=== PATIENT | female | born 1965 | race Caucasian/White ===

== ENCOUNTER 2016-10-17 05:36 | Emergency (ER) | payer MEDICARE, OTHER ==
[~2016-10-17] VITALS: Ht 157.5 cm; Wt 50.0 kg
[~2016-10-17 05:36] MED LIST: ADVA100A INH; ALBUAER3 INH; CLON1 PO; CYMB60CA PO; HYDR200T3 PO; IPRA0.02 NEB; LISD70 PO; MONT10TA4 PO; NEBUKIT XX; NEBULIZER/ADULT1 KIT; NEBULIZER1 MI1; NEXI20CA PO; PRED1TAB PO; SPIRCAP INH; TRIA40P IA
[2016-10-17] MEDS ORDERED: SODIUM CHLORIDE 0.9% FLUSH 5 ML FLUSH IVF PRN (05:45)
[2016-10-17 05:52] VITALS: BP 114/76; PULSE 86; RESP 16; TEMP 98.2; O2SAT 96
[2016-10-17 06:01] LABS: BASOPHIL # 0.1 TH/MM3 (0-0.2); BASOPHIL % 0.9 % (0.0-2.0); EOSINOPHIL # 0.2 TH/MM3 (0-0.4); HEMATOCRIT 38.7 % (35.0-46.0); HEMO FLAGS DIFF FINAL; LYMPH % 17.5 % (9.0-44.0); LYMPHOCYTE # 1.6 TH/MM3 (1.0-4.8); MEAN CELL VOLUME 85.9 FL (80.0-100.0); MEAN CORPUSCULAR HEMOGLOBIN 29.8 PG (27.0-34.0); MEAN CORPUSCULAR HGB CONC 34.7 % (32.0-36.0); MONO % 3.8 % (0.0-8.0); NEUT % 75.8 % (16.0-70.0); PLATELET COUNT 307 TH/MM3 (150-450); RED CELL DISTRIBUTION WIDTH 13.3 % (11.6-17.2); WHITE BLOOD COUNT 9.2 TH/MM3 (4.0-11.0)
--- NOTE | 2016-10-17 06:13 | RADRPT ---
EXAM DATE/TIME: 10/17/2016 05:59 [place] COMPARISON: CHEST SINGLE AP, January 17, 2016, 14:08. INDICATIONS : Chest pain MEDICAL HISTORY : Hypercholesterolemia. Gastroesophageal reflux disease. Chronic obstructive SURGICAL HISTORY : None. ENCOUNTER: Initial ACUITY: 1 day PAIN SCORE: 5/10 LOCATION: Bilateral chest FINDINGS: A single view of the chest demonstrates the lungs to be symmetrically aerated without evidence of mas s, infiltrate or effusion. The lungs are hyperaerated. The cardiomediastinal contours are unremarkabl e. Osseous structures are intact. No significant change. CONCLUSION: No acute disease. No significant change has occurred. Macario Poe MD on October 17, 2016 at 6:11 Board Certified Radiologist. This report was verified electronically.
[2016-10-17 06:17] LABS: APTT (PATIENT) 25.7 SEC (24.3-30.1); INTERNATIONAL NORMALIZED RATIO 0.9 RATIO; PROTHROMBIN TIME - PATIENT 9.9 SEC (9.8-11.6)
[2016-10-17 06:30] LABS: ANION GAP 9 MEQ/L (5-15); BICARBONATE 25.6 MEQ/L (21.0-32.0); BLOOD UREA NITROGEN 12 MG/DL (7-18); CHLORIDE 107 MEQ/L (98-107); GLOMERULAR FILTRATION RATE 58 ML/MIN (>89); MAGNESIUM 2.4 MG/DL (1.5-2.5); POTASSIUM 4.2 MEQ/L (3.5-5.1); SODIUM (NA) 142 MEQ/L (136-145)
[2016-10-17 06:35] LABS: CREATINE KINASE 63 U/L (26-192)
--- NOTE | 2016-10-17 07:07 | PD ---
HPI Chief Complaint: Chest Pain Time Seen by Provider: 05:44 Travel History International Travel<30 days: No Contact w/Intl Traveler<30days: No Traveled to known affect area: No History of Present Illness HPI 50-year-old female arrives to the ER complaining of chest pressure starting at about 5 AM when she woke up. She called EMS. It was severe initially. She received nitroglycerin en route and a baby aspirin. In the ER she states her pain resolved. Radiation to the bilateral extremities reported. She believes it's similar prior episodes of costochondritis. No fever or cough. She has a history of COPD and asthma. She also has a history of rheumatoid arthritis as well as ADHD, bipolar depression and anxiety. PFSH Past Medical History Hx Anticoagulant Therapy: No ADHD: Yes Arthritis: Yes (OSTEO/rheumatoid per pt) Asthma: Yes Autoimmune Disease: No Blood Disorders: No Bipolar Disorder: Yes Anxiety: Yes Depression: Yes Heart Rhythm Problems: No Cancer: No Cardiovascular Problems: No High Cholesterol: Yes Chemotherapy: No Chest Pain: No Congestive Heart Failure: No COPD: Yes Cerebrovascular Accident: No Diabetes: No Diminished Hearing: No Endocrine: No Gastrointestinal Disorders: Yes (IBS) GERD: Yes Genitourinary: No Hiatal Hernia: No Insomnia: Yes Kidney Stones: No Musculoskeletal: No Neurologic: Yes (DDD) Psychiatric: Yes (adult adhd/bipolar/depression/anxiety/) Reproductive: Yes Respiratory: Yes (ASTHMA) Immunizations Current: Yes Migraines: No Radiation Therapy: No Renal Failure: No Seizures: No Sickle Cell Disease: No Sleep Apnea: No Thyroid Disease: No Ulcer: No Tetanus Vaccination: > 5 Years Influenza Vaccination: No PNEUMOCCOCAL Vaccine (Year): 1 ?: Not Menopausal: Yes : 0 Past Surgical History Abdominal Surgery: No AICD: No Arteriovenous Shunt: No Cardiac Surgery: No Ear Surgery: No Endocrine Surgery: No Eye Surgery: No Genitourinary Surgery: Yes Hysterectomy: No Insulin Pump: No Joint Replacement: No Neurologic Surgery: No Oral Surgery: Yes (WISDOM TEETH EXTRACTIONS, ROOT CANALS) Thoracic Surgery: Yes (CHEST TUBE X3 FOR SPONTANEOUS PNEUMOTHORAX(S)) Other Surgery: Yes (BREAST IMPLANTS) Social History Alcohol Use: No Tobacco Use: No Substance Use: No Allergies-Medications (Allergen,Severity, Reaction): Coded Allergies: Cultivated Oat Pollen (Verified Allergy, Severe, Wheezing, 01/17/16) Doxycycline (Verified Allergy, Severe, Nausea/Vomiting, 01/17/16) Egg Yolk (Verified Allergy, Severe, HIVES, 01/17/16) Hives - dosn't remember where was it Molds and Smuts (Verified Allergy, Severe, Wheezing, 01/17/16) Reported Meds & Prescriptions Reported Meds & Active Scripts Active Advair Diskus Inh (Fluticasone-Salmeterol Inh) 100-50 Mcg/Blist Aer 1 Puff INH BID Rinse mouth after use. Nebulizer Compressor/Dual (Miscellaneous Medication) Kit 1 Units XX Reported Spiriva Handihaler (Tiotropium Inh) 18 Mcg Cap 18 Mcg INH DAILY 1 capsule = 18 mcg Nebulizer 1 Mis Mis 1 Ea .ROUTE DIRECTED Nebulizer/Adult Mask (N/A) 1 Kit Kit 1 Kit .ROUTE DIRECTED Montelukast (Montelukast Sodium) 10 Mg Tab 10 Mg PO HS Hydroxychloroquine (Hydroxychloroquine Sulfate) 200 Mg Tab 200 Mg PO BID Takw with food Ipratropium Neb (Ipratropium Cameron) 0.5 Mg/2.5 Ml Amp 0.5 Mg NEB QID PRN Proair Hfa 8.5 GM Inh (Albuterol Sulfate) 90 Mcg/Act Aer 2 Puff INH Q4HR PRN 108 mcg/actuation Prednisone 1 Mg Tab 10 Mg PO BID Nexium (Esomeprazole Magnesium) Esomeprazole Magnesium 20 mg Cap 20 Mg PO DAILY Cymbalta (Duloxetine HCl) 60 Mg Cap 60 Mg PO DAILY Vyvanse 70 Mg Cap (Lisdexamfetamine Dimesylate) 70 Mg Cap 70 Mg PO DAILY Klonopin (Clonazepam) 1 Mg Tab 1 Mg PO HS Review of Systems Except as stated in HPI: all other systems reviewed are Neg Physical Exam Narrative GENERAL: 50-year-old female well-nourished well-developed mildly anxious SKIN: Warm and dry. HEAD: Atraumatic. Normocephalic. EYES: Pupils equal and round. No scleral icterus. No injection or drainage. ENT: No nasal bleeding or discharge. Mucous membranes pink and moist. NECK: Trachea midline. No JVD. CARDIOVASCULAR: Regular rate and rhythm. No murmur appreciated. RESPIRATORY: No accessory muscle use. Clear to auscultation. Breath sounds equal bilaterally. GASTROINTESTINAL: Abdomen soft, non-tender, nondistended. Hepatic and splenic margins not palpable. MUSCULOSKELETAL: No obvious deformities. No clubbing. No cyanosis. No edema. NEUROLOGICAL: Awake and alert. No obvious cranial nerve deficits. Motor grossly within normal limits. Normal speech. PSYCHIATRIC: Appropriate mood and affect; insight and judgment normal. Data Data Last Documented VS Vital Signs Date Time Temp Pulse Resp B/P Pulse Ox O2 Delivery O2 Flow Rate FiO2 10/17/16 05:55 Room Air 10/17/16 05:52 98.2 86 16 114/76 96 Orders Electrocardiogram (10/17/16 05:44) Basic Metabolic Panel (Bmp) (10/17/16 05:44) Ckmb (Isoenzyme) Profile (10/17/16 05:44) Complete Blood Count With Diff (10/17/16 05:44) Magnesium (Mg) (10/17/16 05:44) Prothrombin Time / Inr (Pt) (10/17/16 05:44) Act Partial Throm Time (Ptt) (10/17/16 05:44) Troponin I (10/17/16 05:44) Chest, Single Ap (10/17/16 05:44) Ecg Monitoring (10/17/16 05:44) Bilateral Bp Monitoring (10/17/16 05:44) Iv Access Insert/Monitor (10/17/16 05:44) Oximetry (10/17/16 05:44) Oxygen Administration (10/17/16 05:44) Sodium Chloride 0.9% Flush (Ns Flush) (10/17/16 05:45) Labs Laboratory Tests Test 10/17/16 05:50 White Blood Count 9.2 TH/MM3 Red Blood Count 4.50 MIL/MM3 Hemoglobin 13.4 GM/DL Hematocrit 38.7 % Mean Corpuscular Volume 85.9 FL Mean Corpuscular Hemoglobin 29.8 PG Mean Corpuscular Hemoglobin 34.7 % Concent Red Cell Distribution Width 13.3 % Platelet Count 307 TH/MM3 Mean Platelet Volume 6.1 FL Neutrophils (%) (Auto) 75.8 % Lymphocytes (%) (Auto) 17.5 % Monocytes (%) (Auto) 3.8 % Eosinophils (%) (Auto) 2.0 % Basophils (%) (Auto) 0.9 % Neutrophils # (Auto) 7.0 TH/MM3 Lymphocytes # (Auto) 1.6 TH/MM3 Monocytes # (Auto) 0.3 TH/MM3 Eosinophils # (Auto) 0.2 TH/MM3 Basophils # (Auto) 0.1 TH/MM3 CBC Comment DIFF FINAL Differential Comment Prothrombin Time 9.9 SEC Prothromb Time International 0.9 RATIO Ratio Activated Partial 25.7 SEC Thromboplast Time Sodium Level 142 MEQ/L Potassium Level 4.2 MEQ/L Chloride Level 107 MEQ/L Carbon Dioxide Level 25.6 MEQ/L Anion Gap 9 MEQ/L Blood Urea Nitrogen 12 MG/DL Creatinine 1.00 MG/DL Estimat Glomerular Filtration 58 ML/MIN Rate Random Glucose 103 MG/DL Calcium Level 8.6 MG/DL Magnesium Level 2.4 MG/DL Total Creatine Kinase 63 U/L Troponin I LESS THAN 0.02 NG/ML MDM Medical Decision Making Medical Screen Exam Complete: Yes Emergency Medical Condition: Yes Medical Record Reviewed: Yes Differential Diagnosis NSTEMI, unstable angina, coronary vasospasm, PE, PTX, aortic dissection, pericarditis, myocarditis, endocarditis, PNA, esophageal disease, aneurysm, musculoskeletal etiologies, anxiety, cocaine/sympathomimetic abuse Narrative Course EKG reveals a sinus rhythm at 92 and normal axis and DC interval 118 no evidence of acute ischemia Last 24 hours Impressions Chest X-Ray 10/17/16 0544 Signed Impressions: Service Date/Time: Monday, October 17, 2016 05:59 - CONCLUSION: No acute disease. No significant change has occurred. Macario Poe MD CBC & BMP Diagram 10/17/16 05:50 Troponin less than 0.02 INR 0.9 Chest pain center protocol considered most reasonable next step for this patient. She elects to go home. She is aware that she might be experiencing myocardial infarction and that if she doesn't stay for complete evaluation she may come back too late. She may therefore suffer global hypokinesis/ hypoperfusion with resultant CHF and a very poor quality of life. Intubation prolonged ICU admission surgery pain and suffering were described. The patient is aware of the risks she seemed to leaving. The patient demonstrates mental competence for independent decision making. Diagnosis Primary Impression: Left against medical advice Referrals: Primary Care Physician Additional Instructions: You have a choice when it comes to health care, and we are glad that you chose [facility]. Hopefully, we have met your expectations on today's visit. You are welcome to return to [facility] at any time, as we are committed to meeting the health care needs of our community. Med/Other Pt SpecificInfo: No Change to Meds Disposition: 07 AGAINST MEDICAL ADVICE Condition: Randolph Tejeda MD Oct 17, 2016 07:07
--- NOTE | 2016-10-17 08:07 | EKG ---
Date Performed: 10/17/2016 Time Performed: 05:46:04 PTAGE: 50 years EKG: Sinus rhythm WITH SHORT [place] INTERVAL BORDERLINE ECG INTERPRETATION BASED ON A DEFAULT AGE OF 38 YEARS NO SIGNIFICA NT CHANGE FROM PRIOR ELECTROCARDIOGRAM. PREVIOUS TRACING : 01/17/2016 13.54 DOCTOR: Kirk Borden Interpretating Date/Time 10/17/2016 08:06:50
[2016-11-05] MEDS ORDERED: ADVA500A INH (08:14)
[2017-02-04] MEDS ORDERED: ESOM1CAP16 PO (13:45)
[2017-03-01] MEDS ORDERED: IPRA0.02 NEB (12:54)
== END 2016-10-17 07:42 | disposition left against medical advice (07) ==
LOC: NEPC 05:36
DX: R07.89 Other chest pain (principal); R94.31 Abnormal electrocardiogram [ECG] [EKG]; J44.9 Chronic obstructive pulmonary disease, unspecified
CPT/HCPCS: 71010; 80048; 82550; 83735; 84484; 85025; 85610; 85730; 93005

== ENCOUNTER → 2017-05-22 | Outpatient (CLI) | payer MEDICARE, OTHER ==
[~2017-05-22] MED LIST changes: +ADVA500A INH; +ESOM1CAP16 PO; -NEXI20CA PO
[2017-05-22 16:12] LABS: AUTOMATED NEUTROPHIL # 8.1 TH/MM3 (1.8-7.7); BASOPHIL % 0.4 % (0.0-2.0); EOSINOPHIL # 0.1 TH/MM3 (0-0.4); EOSINOPHIL % 0.6 % (0.0-4.0); HEMATOCRIT 41.4 % (35.0-46.0); HEMO FLAGS DIFF FINAL; LYMPH % 23.3 % (9.0-44.0); LYMPHOCYTE # 2.7 TH/MM3 (1.0-4.8); MEAN CELL VOLUME 90.5 FL (80.0-100.0); MEAN CORPUSCULAR HEMOGLOBIN 29.8 PG (27.0-34.0); MONO % 5.1 % (0.0-8.0); NEUT % 70.6 % (16.0-70.0); PLATELET COUNT 335 TH/MM3 (150-450); RED BLOOD COUNT 4.58 MIL/MM3 (4.00-5.30); RED CELL DISTRIBUTION WIDTH 13.2 % (11.6-17.2); WHITE BLOOD COUNT 11.4 TH/MM3 (4.0-11.0)
[2017-05-22 16:24] LABS: ANION GAP 7 MEQ/L (5-15); AST (GOT) 12 U/L (15-37); BICARBONATE 29.2 MEQ/L (21.0-32.0); BLOOD UREA NITROGEN 14 MG/DL (7-18); CHLORIDE 106 MEQ/L (98-107); GLOMERULAR FILTRATION RATE 65 ML/MIN (>89); POTASSIUM 4.1 MEQ/L (3.5-5.1); SODIUM (NA) 142 MEQ/L (136-145)
[2017-05-22 16:27] LABS: ALKALINE PHOSPHATASE 66 U/L (45-117); ALT (GPT) 22 U/L (10-53); TOTAL BILIRUBIN ADULT 0.3 MG/DL (0.2-1.0)
[2017-05-22 16:34] LABS: RHEUMATOID FACTOR TRIGGER LESS THAN 10.0 IU/ML (0.0-14.9)
[2017-05-22 16:54] LABS: WESTERGREN SEDIMENTATION RATE 6 mm/hr (0-30)
== END ==
LOC: PLAB 12:30
DX: M06.041 Rheumatoid arthritis without rheumatoid factor, right hand (principal); Z79.899 Other long term (current) drug therapy
CPT/HCPCS: 36415; 80053; 85025; 85652; 86038; 86140; 86200; 86430

== ENCOUNTER → 2017-12-19 | Outpatient (CLI) | payer MEDICARE, OTHER ==
[2017-12-19 20:35] LABS: AUTOMATED NEUTROPHIL # 3.9 TH/MM3 (1.8-7.7); BASOPHIL # 0.1 TH/MM3 (0-0.2); BASOPHIL % 0.8 % (0.0-2.0); EOSINOPHIL # 0.5 TH/MM3 (0-0.4); EOSINOPHIL % 5.8 % (0.0-4.0); HEMATOCRIT 39.6 % (35.0-46.0); HEMOGLOBIN 13.7 GM/DL (11.6-15.3); LYMPH % 40.6 % (9.0-44.0); LYMPHOCYTE # 3.4 TH/MM3 (1.0-4.8); MEAN CORPUSCULAR HEMOGLOBIN 30.3 PG (27.0-34.0); MEAN CORPUSCULAR HGB CONC 34.5 % (32.0-36.0); MEAN PLATELET VOLUME 6.3 FL (7.0-11.0); MONO % 6.7 % (0.0-8.0); MONOCYTE # 0.6 TH/MM3 (0-0.9); NEUT % 46.1 % (16.0-70.0); PLATELET COUNT 389 TH/MM3 (150-450); RED CELL DISTRIBUTION WIDTH 12.8 % (11.6-17.2); WHITE BLOOD COUNT 8.5 TH/MM3 (4.0-11.0)
[2017-12-19 20:55] LABS: ALBUMIN 3.8 GM/DL (3.4-5.0); AST (GOT) 17 U/L (15-37); BICARBONATE 28.3 MEQ/L (21.0-32.0); BLOOD UREA NITROGEN 11 MG/DL (7-18); CHLORIDE 106 MEQ/L (98-107); CREATININE 0.88 MG/DL (0.50-1.00); GLOMERULAR FILTRATION RATE 67 ML/MIN (>89); GLUCOSE,FASTING 59 MG/DL (74-99); SODIUM (NA) 142 MEQ/L (136-145)
[2017-12-19 20:56] LABS: ALT (GPT) 26 U/L (10-53)
[2017-12-19 21:03] LABS: ALKALINE PHOSPHATASE 74 U/L (45-117); C-REACTIVE PROTEIN LESS THAN 0.29 MG/DL (0.00-0.30); TOTAL BILIRUBIN ADULT 0.3 MG/DL (0.2-1.0); TOTAL PROTEIN 7.5 GM/DL (6.4-8.2)
[2017-12-19 21:53] LABS: WESTERGREN SEDIMENTATION RATE 18 mm/hr (0-30)
== END ==
LOC: PLAB 14:32
PROVIDERS: ATTEND Allergy & Immunology
DX: M06.041 Rheumatoid arthritis without rheumatoid factor, right hand (principal)
CPT/HCPCS: 36415; 80053; 85025; 85652; 86140